=== PATIENT | female | born 1985 | race Caucasian/White ===

== ENCOUNTER 2018-02-03 19:25 | Emergency (ER) | payer MEDICAID ==
--- NOTE | 2018-02-03 19:44 | Emergency Department Record ---
History of Present Illness - General Chief complaint: Female Urogenital Problem Stated complaint: UTI Time Seen by Provider: 02/03/18 19:37 Source: Patient Mode of Arrival: Ambulatory Limitations: No limitations - History of Present Illness Initial comments: The patient is here due to a one day hx of pelvic cramping and lower AP. She has had some dysuria but no vaginal bleeding. The patient is 22 weeks with her 3rd . She denies any trauma or injury. MD Complaint: Pelvic pain Onset/Timin -: Days(s) Location: Perineum Radiation: Non-radiating, Suprapubic Severity: Moderate Severity scale (1-10): 5 Quality: Cramping Consistency: Intermittent Improves with: None Patient : Yes (22 WEEKS) Associated Symptoms: Abdominal pain, Nausea/vomiting - Related Data Sexually active: Yes Home Medications Medication Instructions Recorded Confirmed Last Taken Ondansetron [Zofran Odt] 4 mg PO Q6H PRN 02/03/18 02/03/18 02/03/18 Previous Rx's Medication Instructions Recorded Cephalexin [Keflex] 500 mg PO QID #28 cap 02/03/18 Allergies Allergy/AdvReac Type Severity Reaction Status Date / Time No Known Drug Allergies Allergy Verified 02/03/18 19:32 Travel Screening - Travel/Exposure Within Last 30 Days Have you traveled within the last 30 days?: No - Travel Symptoms Symptom Screening: None Review of Systems Constitutional: Denies: Chills, Fever Eyes: Denies: Eye discharge ENT: Denies: Congestion Past Medical History - SOCIAL HISTORY Smoking Status: Never smoker Alcohol Use: None Drug Use: None - RESPIRATORY Hx Respiratory Disorders: No - CARDIOVASCULAR Hx Cardio Disorders: No - NEURO Hx Neuro Disorders: No - GI Hx GI Disorders: No - Hx Genitourinary Disorders: No - ENDOCRINE Hx Endocrine Disorders: No - MUSCULOSKELETAL Hx Musculoskeletal Disorders: No - PSYCH Hx Psych Problems: No - HEMATOLOGY/ONCOLOGY Hx Hematology/Oncology Disorders: No Family Medical History Any Significant Family History?: No Physical Exam - General General Appearance: Alert, Oriented x3, Cooperative, No acute distress - Head Head exam: Atraumatic, Normocephalic, Normal inspection - Eye Eye exam: Normal appearance, PERRL - Neck Neck exam: Normal inspection, Full ROM. negative: Tenderness - Respiratory Respiratory exam: Normal lung sounds bilaterally. negative: Respiratory distress - Cardiovascular Cardiovascular Exam: Regular rate, Normal rhythm, Normal heart sounds - GI/Abdominal GI/Abdominal exam: Soft, Normal bowel sounds, Other (FHT: ). negative: Rebound , Rigid, Tenderness - Extremities Extremities exam: Normal inspection, Full ROM, Normal capillary refill. negative: Tenderness - Neurological Neurological exam: Alert. negative: Motor sensory deficit Course Vital Signs 02/03/18 19:34 Temperature 97.7 F Pulse Rate 87 Respiratory 20 Rate Blood Pressure 114/69 Pulse Ox 98 - Reevaluation(s) Reevaluation #1: Due to the patient being 22 weeks we will need to transfer the patient to [facility] and . The patient agrees to the plan. I did offer to send the patient by ambulance but she is refusing and wants to drive. I explained the risks of driving herself which include syncope, car accident, trauma, placenta abruption and and maternal and disability. The patient accepts the risks and understands we cannot be help liable for NOT sending her by ambulance. 02/03/18 19:40 Reevaluation #2: I did discuss the case with Dr. Pillai at [facility] and she is aware of the patient coming to the hospital to OB triage. 02/03/18 19:48 Medical Decision Making - Data Complexity MDM Data: Labs Ordered and/or Reviewed Disposition Disposition: Transfer Clinical Impression: Pelvic cramping Disposition: Acute Care Hospital Transfer Transfer To: [facility] OB triage Reason For Transfer: 22 weeks . Accepting Physician: Freya Time Discussed w/Accepting Physician: 19:49 Condition: (2) Stable Prescriptions: Cephalexin [Keflex] 500 mg PO QID #28 cap Forms: Patient Portal Access Time of Disposition: 19:49 Quality - Quality Measures Quality Measures: N/A - Blood Pressure Screening View Details: Yes Does Patient Have Any of the Following: No Blood Pressure Classification: Normal BP Reading Systolic Measurement: 114 Diastolic Measurement: 69 Screening for High Blood Pressure: < Normal BP, F/U Not Required > [G8783]
[2018-02-03 19:47] LABS: URINE APPEARANCE CLOUDY; URINE BILIRUBIN NEGATIVE (NEGATIVE); URINE BLOOD MODERATE (NEGATIVE); URINE COLOR RED; URINE GLUCOSE (UA) NEGATIVE (NEGATIVE); URINE KETONE TRACE (NEGATIVE); URINE LEUKOCYTE ESTERASE NEGATIVE (NEGATIVE); URINE NITRITE NEGATIVE (NEGATIVE); URINE PROTEIN TRACE (NEGATIVE)
[2018-02-03 19:54] LABS: URINE BACTERIA FEW; URINE WBC 0 - 2 (0-2/hpf)
== END 2018-02-03 19:59 | disposition short-term general hospital (02) ==
LOC: ER 19:25
DX: O26.892 Other specified pregnancy related conditions, second trimester (principal); R10.2 Pelvic and perineal pain; R11.2 Nausea with vomiting, unspecified; Z3A.22 22 weeks gestation of pregnancy
CPT/HCPCS: 81001; 99284